=== PATIENT | male | born 1980 ===

== ENCOUNTER 2017-06-28 09:01 | Emergency (ER) | payer SELFPAY ==
[2017-06-28 09:18] VITALS: BMI 25.7
[2017-06-28 09:19] VITALS: TEMP 98.7
[2017-06-28] MEDS ORDERED: Aspirin 325 mg EC Tablets PO STA (09:48)
[2017-06-28] MEDS ORDERED: Sodium Chloride 0.9% 1,000 ML IV ONE (09:48)
--- NOTE | 2017-06-28 09:54 | C.PDOC ---
History Of Present Illness 37 y/o male, no medical history, complains of left sided chest pain for 4 days. Patient describes intermittent tightness and feels palpitations. Patient felt SOB last night. Notes he has been taking aspirin with transient relief, no pain currently. Patient states he felt dizzy upon waking up this morning, now resolved. He states pain worsens with certain movements and deep inspiration. Patient notes his mother was "told she had a slow heart rate" and needed a pacemaker. Otherwise, denies fever, chills, nausea, vomiting, headache, or other associated symptoms. Time Seen by Provider: 06/28/17 09:40 Chief Complaint (Nursing): Chest Pain History Per: Patient History/Exam Limitations: no limitations Onset/Duration Of Symptoms: Days Current Symptoms Are (Timing): Still Present Associated Symptoms: denies: Nausea, Diaphoresis Exacerbating Factors: Movement, Deep Breathing Recent travel outside of the [place]: No Past Medical History Reviewed: Historical Data, Nursing Documentation, Vital Signs Vital Signs: Last Vital Signs Temp 98.7 F 06/28/17 09:18 Pulse 55 L 06/28/17 11:35 Resp 16 06/28/17 11:35 BP 126/76 06/28/17 11:35 Pulse Ox 100 06/28/17 11:35 - Medical History PMH: No Chronic Diseases Surgical History: No Surg Hx Family History: States: Unknown Family Hx Other Family History: mother: pacemaker - Social History Hx Alcohol Use: Yes Hx Substance Use: No Review Of Systems Except As Marked, All Systems Reviewed And Found Negative. Constitutional: Negative for: Fever, Chills Cardiovascular: Positive for: Chest Pain, Palpitations Respiratory: Positive for: Shortness of Breath (occasional). Negative for: Wheezing Gastrointestinal: Negative for: Nausea, Vomiting, Abdominal Pain Skin: Negative for: Rash Neurological: Negative for: Headache, Dizziness (resolved) Physical Exam - Physical Exam Appears: Non-toxic, No Acute Distress Skin: Normal Color, Warm, Dry Head: Atraumatic, Normacephalic Eye(s): bilateral: Normal Inspection, PERRL, EOMI Nose: Normal Oral Mucosa: Moist Neck: Normal ROM Chest: Symmetrical, No Tenderness, No Ecchymosis Cardiovascular: Rhythm Regular Respiratory: Normal Breath Sounds, No Rales, No Rhonchi, No Wheezing Gastrointestinal/Abdominal: Bowel Sounds (active), Soft, No Tenderness, No Guarding, No Rebound Back: Normal Inspection Extremity: Normal ROM, Capillary Refill (< 2 sec.) Neurological/Psych: Oriented x3, Normal Speech Gait: Steady ED Course And Treatment - Laboratory Results Result Diagrams: 06/28/17 10:25 06/28/17 10:25 Lab Interpretation: No Acute Changes ECG: Interpreted By Me, Viewed By Me ECG Rhythm: Sinus Bradycardia ECG Interpretation: No Acute Changes Rate From EC (BPM) O2 Sat by Pulse Oximetry: 99 (RA) Pulse Ox Interpretation: Normal - Radiology CXR: Interpreted by Me CXR Interpretation: Yes: No Acute Disease Medical Decision Making Medical Decision Making: Plan: * Cardiac workup: EKG, CXR, bloodwork, labs, environmental monitoring specialist * aspirin 325mg PO, IV fluids * Reassess Progress: labs reviewed and unremarkable, negative troponin, borderline high cholesterol 11:16 Patients re-evaluated and reports pain improved and is resting comfortably in no distress. Vital signs stable. Based on negative finding and no arrhythmia during ED evaluation, unlikely ACS and symptoms likely musculoskeletal or anxiety. Discussed results with patient who feels comfortable going home and will be discharged. Recommend follow up in the clinic. Disposition Counseled Patient/Family Regarding: Diagnosis, Need For Followup - Disposition [facility]Outside[facility] Disposition: HOME/ ROUTINE Disposition Time: 11:17 Condition: STABLE Additional Instructions: Mana laboratorios, radiografa de trax y EKG fueron normales Por favor, siga en la clnica para ms atencin y consulta de cardiologa tome aspirina para cualquier dolor que pueda tener Regrese al servicio de urgencias en cualquier momento si los sntomas persisten o empeoran. Instructions: Noncardiac Chest Pain (ED) Forms: [employer] (Lao) Print Language: ALBANIAN - POA Present On Arrival: None - Clinical Impression Clinical Impression: Palpitations, Chest discomfort - PA / LINSEED OIL REFINER / Resident Statement MD/DO has reviewed & agrees with the documentation as recorded. - Scribe Statement The provider has reviewed the documentation as recorded by the Scribe SM All medical record entries made by the Scribe were at my direction and personally dictated by me. I have reviewed the chart and agree that the record accurately reflects my personal performance of the history, physical exam, medical decision making, and the department course for this patient. I have also personally directed, reviewed, and agree with the discharge instructions and disposition.
[2017-06-28 10:29] LABS: BASO % 0.5 % (0.0-2.0); EOS # 0.1 K/uL (0.0-0.7); EOS % 1.1 % (0.0-4.0); HEMATOCRIT 42.7 % (35.0-51.0); LYMPH % 15.3 % (20.0-40.0); MEAN CELL VOLUME 89.5 fL (80.0-94.0); MEAN CORPUSCULAR HEMOGLOBIN 30.1 pg (27.0-31.0); MEAN CORPUSCULAR HGB CONC 33.6 g/dL (33.0-37.0); MEAN PLATELET VOLUME 6.8 fL (7.2-11.7); MONO # 0.6 K/uL (0.0-0.8); MONO % 8.4 % (0.0-10.0); RED CELL DISTRIBUTION WIDTH 12.9 % (11.5-14.5); WHITE BLOOD COUNT 6.6 K/uL (4.8-10.8)
[2017-06-28] MEDS ORDERED: Sodium Chloride 0.9% 1,000 ML ONE (10:34)
[2017-06-28] MEDS ORDERED: Aspirin 325 mg EC Tablets PO ONE (10:34)
[2017-06-28 10:37] LABS: CHLORIDE 105 mmol/L (98-107); POTASSIUM 3.7 mmol/L (3.6-5.2); SODIUM 139 mmol/L (132-148)
[2017-06-28 10:39] LABS: ALB/GLOB RATIO 1.5 (1.0-2.1); AST/SGOT 52 U/L (17-59); BILIRUBIN,TOTAL 1.6 mg/dL (0.2-1.3); CARBON DIOXIDE 24 mmol/L (22-30); CHOLESTEROL 187 mg/dL (0-199); GFR AFRICAN-AMERICAN > 60; TOTAL PROTEIN 7.3 g/dL (6.3-8.3)
[2017-06-28 10:40] LABS: ALKALINE PHOSPHATASE 63 U/L (38-126); ALT/SGPT 59 U/L (21-72); BLOOD UREA NITROGEN 5 mg/dL (9-20); GLUCOSE,RANDOM 104 mg/dL (75-110)
[2017-06-28 10:44] LABS: RBC URINE 1 /hpf (0-3); URINE BILIRUBIN NEGATIVE (NEGATIVE); URINE BLOOD NEGATIVE (NEGATIVE); URINE COLOR Yellow (YELLOW); URINE GLUCOSE (UA) NORMAL (Normal); URINE KETONE NEGATIVE (NEGATIVE); URINE LEUKOCYTE ESTERASE NEG Leu/uL (Negative); URINE PROTEIN NEGATIVE (NEGATIVE); URINE UROBILINOGEN NORMAL mg/dL (0.2-1.0); WBC URINE < 1 /hpf (0-5)
--- NOTE | 2017-06-28 10:44 | RAD ---
HISTORY: chest pain COMPARISON: None available. TECHNIQUE: Chest PA and lateral FINDINGS: LUNGS: No focal consolidation. Please note that chest x-ray has limited sensitivity for the detection of pulmonary masses. PLEURA: No significant pleural effusion identified. No definite pneumothorax . CARDIOVASCULAR: The cardiomediastinal silhouette appears within normal limits of size. OSSEOUS STRUCTURES: Degenerative changes. VISUALIZED UPPER ABDOMEN: Unremarkable. OTHER FINDINGS: None. IMPRESSION: No focal consolidation, significant pleural effusion, or definite pneumothorax identified.
[2017-06-28 11:37] VITALS: BP 126/76; PULSE 55; RESP 16
--- NOTE | 2017-06-29 18:37 | CARD ---
APPROVED REPORT EKG Measurement Heart [id number] <Conclusion> Sinus bradycardia with short FL Otherwise normal ECG
[2017-06-29 19:29] VITALS: O2SAT 99
== END 2017-06-28 11:37 | disposition home or self-care (01) ==
LOC: C.ER 09:01
DX: R00.2 Palpitations (principal); R07.89 Other chest pain
CPT/HCPCS: 71020; 80053; 80061; 81001; 83880; 84484; 85025; 85610; 85730; 93005; 96360; 99283; J7040

== ENCOUNTER 2019-01-30 12:25 | Emergency (ER) | payer OTHER ==
[2019-01-30 12:25] VITALS: BMI 25.7
[2019-01-30 12:35] VITALS: BP 118/69; RESP 18; O2SAT 98
[2019-01-30 12:53] VITALS: PULSE 60
--- NOTE | 2019-01-30 13:12 | C.PDOC ---
History Of Present Illness 38 year old male presents to ED with complaint of left-sided chest wall discomfort for the past 2 weeks. 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 Patient complains of waking up with numb hands in the morning that improves throughout the morning with his routine of hands extended. He states that the pain becomes worse with heavy lifting. parasthesias involve lateral 3 fingers. Patient denies chest pressure and SOB. Time Seen by Provider: 01/30/19 13:02 Chief Complaint (Nursing): Chest Pain History Per: Patient History/Exam Limitations: no limitations Onset/Duration Of Symptoms: Other (2 weeks) Current Symptoms Are (Timing): Still Present Associated Symptoms: denies: Dyspnea Past Medical History Reviewed: Historical Data, Nursing Documentation, Vital Signs Vital Signs: Last Vital Signs Temp Pulse 60 01/30/19 12:44 Resp 18 01/30/19 12:33 BP 118/69 01/30/19 12:33 Pulse Ox 98 01/30/19 12:33 - Medical History PMH: No Chronic Diseases Surgical History: No Surg Hx Family History: States: Unknown Family Hx - Social History Hx Alcohol Use: Yes Hx Substance Use: No Review Of Systems Constitutional: Negative for: Weakness Cardiovascular: Positive for: Chest Pain (left chest wall discomfort). Negative for: Palpitations, Other (chest pressure) Respiratory: Negative for: Shortness of Breath Neurological: Positive for: Numbness (bilateral hands). Negative for: Weakness Physical Exam - Physical Exam Appears: Well, Non-toxic, No Acute Distress Skin: Normal Color, Warm, Dry Head: Atraumatic, Normacephalic Neck: Normal ROM, Supple Chest: Symmetrical, No Deformity, Tenderness (mild tenderness to the chest wall at the left lateral intercostal T4-T6 area) Cardiovascular: Rhythm Regular, No Murmur Respiratory: No Accessory Muscle Use, No Rales, No Rhonchi, No Wheezing Gastrointestinal/Abdominal: Soft, No Tenderness Extremity: Normal ROM, Capillary Refill (<2 seconds), Other (bilateral workman's hand with calluses; positive phalen's sign) Pulses: Left Radial: Normal, Right Radial: Normal Neurological/Psych: Oriented x3, Normal Speech, Normal Cognition, No Normal Sensation (paresthesia to the lateral 3 fingers of both hands) ED Course And Treatment ECG: Interpreted By Me ECG Rhythm: Sinus Rhythm ECG Interpretation: Normal Rate From EC O2 Sat by Pulse Oximetry: 98 (in RA) Pulse Ox Interpretation: Normal Progress Note: EKG ordered for patient. Patient given Motrin PO. 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 NSAIDS ROS + suspected carpal tunnel syndrome wrist splints NSAIDS Disposition Doctor Will See Patient In The: Office Counseled Patient/Family Regarding: Studies Performed, Diagnosis - Disposition Referrals: [facility] [Outside] [employer] [facility] [Outside] [facility] [Outside] [facility] [Outside] Disposition: HOME/ ROUTINE Disposition Time: 13:12 Condition: GOOD Additional Instructions: pared del pecho ibuprofeno/advil 400-600 mg cada 6 horas joshua necessario [place]ols[place] de hielo 1/2 hora por hora, nada caliente munecas: duerme con esguinses ibuprofeno Sigue con la [facility] para referido al [facility]. Instructions: Carpal Tunnel Syndrome, Costochondritis Forms: [employer] (Romansh) Print Language: PERSIAN - Clinical Impression Clinical Impression: Chest wall discomfort, Paresthesia of hand, bilateral - Scribe Statement The provider has reviewed the documentation as recorded by the Scribe (Daylin Bundy) All medical record entries made by the Scribe were at my direction and personally dictated by me. I have reviewed the chart and agree that the record accurately reflects my personal performance of the history, physical exam, medical decision making, and the department course for this patient. I have also personally directed, reviewed, and agree with the discharge instructions and d isposition.
--- NOTE | 2019-01-31 10:54 | CARD ---
APPROVED REPORT Date of service: 01/30/2019 EKG Measurement Heart [id number] IN [id number] <Conclusion> Sinus bradycardia Minimal voltage criteria for LVH, may be normal variant Borderline ECG
== END 2019-01-30 13:43 | disposition home or self-care (01) ==
LOC: C.ER 12:25
DX: R07.89 Other chest pain (principal); R20.2 Paresthesia of skin